=== PATIENT | male | born 1985 | race Caucasian/White ===

== ENCOUNTER 2020-01-26 03:57 | Emergency (ER) | payer BC ==
[2020-01-26 04:46] VITALS: BP 125/74; PULSE 63; TEMP 97.8; BMI 30.7
--- NOTE | 2020-01-26 04:47 | PDOC ---
Attending Attestation - Resident Resident Name: Yesika Edmond - ED Attending Attestation I have performed the following: I have examined & evaluated the patient, The case was reviewed & discussed with the resident, I agree w/resident's findings & plan - HPI HPI: 01/26/20 04:45 Right ear drum rupture from listening to his music too loud with his ear buds - Physicial Exam PE: 01/26/20 04:46 Right TM rupture with drainage - Medical Decision Making 01/26/20 04:46 Home with floxin otic BOD 5 dropsx 3 days Follow with ENT Discharge - Discharge Information Problems reviewed: Yes Clinical Impression/Diagnosis: Tympanic membrane rupture Qualifiers: Laterality: right Qualified Code(s): H72.91 - Unspecified perforation of tympanic membrane, right ear Condition: Good Disposition: HOME - Additional Discharge Information Prescriptions: Ofloxacin Otic [Floxin Otic -] 5 drop AD BID 5 Days #1 bottle - Follow up/Referral Referrals: David Peraza MD [Staff Physician] - - Patient Discharge Instructions Patient Printed Discharge Instructions: DI for Tympanic Membrane Perforation- Adult Additional Instructions: You were seen in the ER today for a ruptured tympanic membrane in your ear. Please follow-up with your primary care doctor and ENT within 1-2 days to discuss your visit and make sure your symptoms have improved. Please return to the ER if you have any worsening pain, development of fevers or chills, loss of consciousness, inability to tolerate food or fluids, or any other concerns. I have sent medications to your pharmacy. Please take these medications as prescribed. You can take tylenol or motrin every 4-6 hours as needed for pain. - Post Discharge Activity
[2020-01-26] MEDS ORDERED: IBUPROFEN 400 MG TABLET (FP) PO ONE ×2 (04:48→04:50)
--- NOTE | 2020-01-26 04:49 | PDOC ---
History of Present Illness - General Stated Complaint: R EAR PAIN Time Seen by Provider: 01/26/20 04:26 History Source: Patient Exam Limitations: No Limitations - History of Present Illness Initial Comments: Pt is a 34 yo M, with no significant PMH, who is presenting with complaints of pain and bloody drainage from the R ear since this afternoon. Pt states he was listening to his ear buds with loud music when he experienced pain in the R ear. Pt denies any recent fevers/chills, headache, vision changes, syncope, chest pain, palpitations, SOB, nausea/vomiting, abdominal pain, urinary symptoms, diarrhea/constipation, or leg swelling. Allergies: NKDA PCP: None Social: Pt denies any cigarette, alcohol, or drug use. Pt denies any recent travel or sick contacts. Surgical: no relevant history. Family: no relevant history. 01/26/20 05:01 Past History - Travel Traveled outside of the country in the last 30 days: No Close contact w/someone who was outside of country & ill: No - Past Medical History Allergies/Adverse Reactions: Allergies Allergy/AdvReac Type Severity Reaction Status Date / Time No Known Allergies Allergy Verified 01/26/20 04:45 Home Medications: Ambulatory Orders Ofloxacin Otic [Floxin Otic -] 5 drop AD BID 5 Days #1 bottle 01/26/20 Review of Systems - Review of Systems Able to Perform ROS?: Yes Is the patient limited Belgian proficient: No Constitutional: Yes: Weakness. No: Chills, Diaphoresis, Fever, Loss of Appetite, Malaise, Weight Stable HEENTM: Yes: See HPI, Ear Discharge. No: Blurred Vision, Recent change in vision, Nose Congestion, Hearing Loss, Throat Pain, Throat Swelling, Difficulty Swallowing Respiratory: No: Cough, Orthopnea, Shortness of Breath Cardiac (ROS): No: Chest Pain, Edema, Irregular Heart Rate, Lightheadedness, Palpitations, Syncope, Chest Tightness ABD/GI: No: Constipated, Diarrhea, Nausea, Poor Appetite, Poor Fluid Intake, Vomiting : No: Burning, Dysuria, Frequency, Flank Pain, Hematuria, Pain, Urgency Musculoskeletal: No: Back Pain, Joint Pain Integumentary: No: Rash Neurological: No: Headache, Numbness, Weakness, Unsteady Gait, Dizziness Psychiatric: No: Sleep Pattern Change, Change in Appetite Endocrine: No: Increased Urine, Change in Weight Hematologic/Lymphatic: No: Anemia, Blood Clots, Easy Bleeding, Easy Bruising All Other Systems: Reviewed and Negative *Physical Exam - Physical Exam Vitals stable, pt afebrile. Pt in NAD, overweight body habitus. Pt alert and oriented x3. sales floor team leader generally intact, muscular strength and sensation intact. No midline spinal tenderness, step-offs, or crepitus. Head normocephalic, atraumatic. Eyes PERRLA, EOMI. Oropharynx without erythema or exudates, no LAD b/l. No nasal congestion. Hearing intact. Ruptured R TM with sanguineous drainage. L TM with effusion, but without erythema or bulging of TM. Clear heart sounds, S1/S2, no JVD, b/l pedal edema, or heart murmur. Clear lung sounds, no respiratory distress, wheezes, crackles, or accessory muscle use. No abdominal or CVA tenderness to palpation, no rebound, no guarding. Abdomen soft, non-distended, and with normoactive bowel sounds. Skin without jaundice or rash. 01/26/20 05:04 Medical Decision Making - Medical Decision Making Pt was seen at bedside, also will be seen by attending Dr. Munson. Pt presenting with R-sided ear pain with drainage after using his ear pods today, suggestive of TM rupture. PE showed R TM rupture without erythema, pt afebrile. Provided 800 mg PO motrin for improvement of pain. Pt safe for d/c to home with ENT f/u. Strict return precautions with pt understanding. Provided oflox otic drops x5 days, due to TM rupture with drainage. 01/26/20 04:58 Discharge - Discharge Information Problems reviewed: Yes Clinical Impression/Diagnosis: Tympanic membrane rupture Qualifiers: Laterality: right Qualified Code(s): H72.91 - Unspecified perforation of tympanic membrane, right ear Condition: Good Disposition: HOME - Admission No - Additional Discharge Information Prescriptions: Ofloxacin Otic [Floxin Otic -] 5 drop AD BID 5 Days #1 bottle - Follow up/Referral Referrals: David Peraza MD [Staff Physician] - - Patient Discharge Instructions Patient Printed Discharge Instructions: DI for Tympanic Membrane Perforation- Adult Additional Instructions: You were seen in the ER today for a ruptured tympanic membrane in your ear. Please follow-up with your primary care doctor and ENT within 1-2 days to discuss your visit and make sure your symptoms have improved. Please return to the ER if you have any worsening pain, development of fevers or chills, loss of consciousness, inability to tolerate food or fluids, or any other concerns. I have sent medications to your pharmacy. Please take these medications as prescribed. You can take tylenol or motrin every 4-6 hours as needed for pain. - Post Discharge Activity
== END 2020-01-26 05:01 | disposition home or self-care (01) ==
LOC: JER 03:57
DX: H72.91 Unspecified perforation of tympanic membrane, right ear (principal)
CPT/HCPCS: 99283-25